=== PATIENT | female | born 1975 | race Caucasian/White ===

== ENCOUNTER 2018-07-20 00:13 | Emergency (ER) | payer OTHER ==
[~2018-07-20] VITALS: Ht 167.6 cm; Wt 78.0 kg
[2018-07-20 01:11] LABS: BASOPHILS # (AUTO) 0.1 K/uL (0.0-8.0); BASOPHILS % (AUTO) 1.2 % (0.0-2.0); EOSINOPHILS % (AUTO) 0.5 % (0.0-7.0); HEMATOCRIT 33.8 % (31.2-41.9); HEMOGLOBIN 10.6 g/dL (10.9-14.3); LYMPHOCYTES # (AUTO) 2.4 K/uL (20.0-40.0); LYMPHOCYTES % (AUTO) 33.1 % (20.5-51.5); MEAN CORPUSCULAR HEMOGLOBIN 22.2 uug (24.7-32.8); MEAN CORPUSCULAR HGB CONC 31 g/dL (32.3-35.6); MEAN CORPUSCULAR VOLUME 71.1 fL (75.5-95.3); MONOCYTES # (AUTO) 0.6 K/uL (2.0-10.0); MONOCYTES % (AUTO) 7.8 % (0.0-11.0); NEUTROPHILS # (AUTO) 4.2 K/uL (1.8-8.9); NEUTROPHILS % (AUTO) 57.4 % (38.5-71.5); PLATELET COUNT (AUTO) 336 K/uL (179-408); RED BLOOD CELL COUNT(AUTO) 4.76 MIL/uL (3.63-4.92); WHITE BLOOD COUNT (AUTO) 7.2 K/uL (3.8-11.8)
[2018-07-20 01:13] LABS: *BILIRUBIN,URIN NEGATIVE (NEGATIVE); *BLOOD, URINE NEGATIVE (NEGATIVE); *CLARITY,URINE CLEAR (CLEAR); *COLOR,URINE YELLOW (YELLOW); *KETONES,URINE NEGATIVE (NEGATIVE); *PROTEIN,URINE NEGATIVE (NEGATIVE); *UROBILINOGEN,URINE 0.2 E.U./dl (NORMAL); LEUKOCYTE ESTERASE ,URINE TRACE (NEGATIVE); NITRITE, URINE NEGATIVE (NEGATIVE); PH,URINE 5.5 (5.0-8.0); UGLUCOSE NEGATIVE (NEGATIVE)
[2018-07-20 01:19] LABS: BACTERIA,URINE NONE SEEN /HPF (NONE SEEN); RBC,URINE 0-3 /HPF (0-3); SQUAMOUS EPITHELIAL CELL,UR FEW /HPF (NONE SEEN); WBC,URINE 0-3 /HPF (0-3)
[2018-07-20 01:26] LABS: CREATININE 0.7 mg/dL (0.6-1.3); POTASSIUM 3.7 mmol/L (3.5-5.1)
[2018-07-20 01:30] LABS: BILIRUBIN,DIRECT 0.1 mg/dL (0.0-0.2); BILIRUBIN,TOTAL 0.3 mg/dL (0.2-1.0); TOTAL PROTEIN, SERUM 7.5 g/dL (6.4-8.2)
[2018-07-20] MEDS ORDERED: IV NORMAL SALINE 250 ML IV ONE (01:35)
[2018-07-20] MEDS ORDERED: IOHEXOL 300MG/ML 100 ML INFUS..BTL ONE (01:35)
[2018-07-20] MEDS ORDERED: SWABABLE VALVE TRANSFER SET EA MC ONE (01:35)
--- NOTE | 2018-07-20 01:39 | NUR ---
PT IN ROUTE TO RADIOLOGY FOR CTA IN WHEELCHAIR WITH TRANSPORTER
--- NOTE | 2018-07-20 01:51 | NUR ---
PT RETURNS FROM RADIOLOGY IN WHEELCHAIR WITH TRANSPORTER
[2018-07-20 02:12] LABS: BAND % (MANUAL) 1 % (0-10); LYMPHOCYTES % (MANUAL) 29 % (20-40); MONOCYTES % (MANUAL) 7 % (2-10); NEUTROPHILS % (MANUAL) 63 % (42-75)
--- NOTE | 2018-07-20 02:40 | NUR ---
Patient discharged to home in stable conditon. Patient reported being free of pain prior to discharge. Peripheral IV was removed. Written and verbal after care instructions given. Patient verbalizes understanding of instructions. Patient able to ambulate unassisted with steady gait. Patient left with all personal belongings.
[2018-07-20 02:47] VITALS: BP 137/91
== END 2018-07-20 02:40 | disposition home or self-care (01) ==
LOC: ER 00:15
DX: R10.31 Right lower quadrant pain (principal); Z90.710 Acquired absence of both cervix and uterus; Z90.49 Acquired absence of other specified parts of digestive tract
CPT/HCPCS: 36415; 74177; 80048; 80076; 81001; 83605; 83690; 85025; 99285; A4663; J7030; J7050; Q9967

== ENCOUNTER 2019-05-30 12:00 | Emergency (ER) | payer OTHER ==
[~2019-05-30] VITALS: Ht 162.6 cm; Wt 79.8 kg
--- NOTE | 2019-05-30 13:00 | NUR ---
PT RECEIVED AMBULATORY C/O OU ERYTHEMA, AND PRURITUS FOR THE PAST 2DAYS. DENIES VISION CHANGES, DENIES PAIN, DENIES TRAUMA TO EYE. DENIES DRAINAGE MD AT BEDSIDE FOR HISTORY AND PHYSICAL
[2019-05-30 13:26] LABS: CREATININE 0.7 mg/dL (0.6-1.3); POTASSIUM 4.3 mmol/L (3.5-5.1)
[2019-05-30 13:32] LABS: BASOPHILS # (AUTO) 0.1 K/uL (0.0-8.0); BILIRUBIN,DIRECT 0.1 mg/dL (0.0-0.2); BILIRUBIN,TOTAL 0.8 mg/dL (0.2-1.0); EOSINOPHILS % (AUTO) 0.8 % (0.0-7.0); HEMATOCRIT 43.8 % (31.2-41.9); HEMOGLOBIN 14.2 g/dL (10.9-14.3); LYMPHOCYTES # (AUTO) 1.4 K/uL (20.0-40.0); LYMPHOCYTES % (AUTO) 23.3 % (20.5-51.5); MEAN CORPUSCULAR HEMOGLOBIN 27.9 uug (24.7-32.8); MEAN CORPUSCULAR HGB CONC 33 g/dL (32.3-35.6); MEAN CORPUSCULAR VOLUME 85.9 fL (75.5-95.3); MONOCYTES # (AUTO) 0.5 K/uL (2.0-10.0); MONOCYTES % (AUTO) 7.8 % (0.0-11.0); NEUTROPHILS % (AUTO) 67.1 % (38.5-71.5); PLATELET COUNT (AUTO) 244 K/uL (179-408); TOTAL PROTEIN, SERUM 6.9 g/dL (6.4-8.2)
[2019-05-30] MEDS ORDERED: predniSONE 20 MG TABLET PO ONE (14:00)
[2019-05-30] MEDS ORDERED: predniSONE 20 MG TABLET ONE (14:03)
--- NOTE | 2019-05-30 14:09 | NUR ---
Patient discharged to home in stable conditon. NOT IN ANY FORM OF DISTRESS. Written and verbal after care instructions given. Patient verbalizes understanding of instructions. AMBULATORY, DENIES PAIN, DENIES VISION CHANGES
[2019-05-30 14:10] VITALS: BP 100/60
== END 2019-05-30 14:10 | disposition home or self-care (01) ==
LOC: ER 12:01
DX: J30.2 Other seasonal allergic rhinitis (principal); Z90.49 Acquired absence of other specified parts of digestive tract; Z90.710 Acquired absence of both cervix and uterus
CPT/HCPCS: 36415; 80048; 80076; 85025; 99283; J7512; A4663

== ENCOUNTER 2019-11-20 13:35 | Emergency (ER) | payer OTHER ==
[~2019-11-20] VITALS: Ht 165.1 cm; Wt 74.4 kg
--- NOTE | 2019-11-20 13:58 | NUR ---
ERMD AT BEDSIDE FOR MSE
--- NOTE | 2019-11-20 14:06 | NUR ---
Patient discharged to home in stable conditon. Written and verbal after care instructions given. Patient verbalizes understanding of instructions.
[2019-11-20 14:07] VITALS: BP 124/75
== END 2019-11-20 14:08 | disposition home or self-care (01) ==
LOC: ER 13:35
DX: H04.301 Unspecified dacryocystitis of right lacrimal passage (principal); Z90.710 Acquired absence of both cervix and uterus; Z90.49 Acquired absence of other specified parts of digestive tract

== ENCOUNTER 2025-08-08 17:25 | Emergency (ER) | payer OTHER ==
[~2025-08-08] VITALS: Ht 162.6 cm; Wt 76.2 kg
[2025-08-08 17:27] VITALS: BP 117/74
[2025-08-08 17:42] LABS: PLATELET COUNT (AUTO) 265 K/uL (179-408); RED BLOOD CELL COUNT(AUTO) 5.11 MIL/uL (3.63-4.92); RED CELL DISTRIBUTION WIDTH 13.5 % (12.3-17.7); WHITE BLOOD COUNT (AUTO) 7.8 K/uL (3.8-11.8)
[2025-08-08 17:50] LABS: CREATININE 0.7 mg/dL (0.6-1.3); SODIUM SERUM 138.0 mmol/L (136-145); UREA NITROGEN, BLOOD 8.0 mg/dL (7-18)
[2025-08-08 18:02] LABS: ASPARTATE AMINOTRANSFERASE 20.0 U/L (15-37); TOTAL PROTEIN, SERUM 7.9 g/dL (6.4-8.2)
[2025-08-08] MEDS ORDERED: ONDA4TAB5 PO (18:08)
[2025-08-08] MEDS ORDERED: ONDANSETRON 4 MG/2 ML VIAL ONE (18:09)
[2025-08-08] MEDS: IV NORMAL SALINE 1000 ML BAG IV ONE (18:14)
[2025-08-08] MEDS: ONDANSETRON 4 MG/2 ML VIAL IV ONE (18:15)
[2025-08-08 19:38] VITALS: BP 117/74; O2SAT 99
== END 2025-08-08 19:30 | disposition home or self-care (01) ==
LOC: ER 17:55
DX: R10.11 Right upper quadrant pain (principal); R11.2 Nausea with vomiting, unspecified; K42.9 Umbilical hernia without obstruction or gangrene; Z90.49 Acquired absence of other specified parts of digestive tract; Z90.710 Acquired absence of both cervix and uterus; Z98.890 Other specified postprocedural states
CPT/HCPCS: 99285; 96374; 76705; 96361; 80076; 80048; 83690; 85025; J2405; J7040; 36415; A4606; A4663